=== PATIENT | male | born 1980 | race Caucasian/White ===

== ENCOUNTER 2022-11-15 12:28 | Outpatient (OUT) | payer MEDICARE, MEDICAID, SELFPAY ==
[2022-11-15 13:03] LABS: Basophils Percent Auto 0.5 % (0.2-2.0); Eosinophils Absolute Auto 0.1 10^3/uL (0.0-0.7); Eosinophils Percent Auto 1.7 % (0.9-7.0); Hematocrit 47.8 % (42.0-54.0); Hemoglobin 15.9 g/dL (14.0-18.0); Immature Granulocytes Abs Auto 0.02 10^3/uL (0.00-0.03); Immature Granulocytes Pct Auto 0.3 % (0.0-0.5); Lymphocytes Absolute Auto 1.9 10^3/uL (1.2-3.8); Mean Corpuscular HGB Conc 33.3 g/dL (29.9-35.2); Mean Corpuscular Hemoglobin 27.8 pg (25.9-34.0); Mean Corpuscular Volume 83.6 fL (80.0-94.0); Mean Platelet Volume 8.6 fL (9.5-13.5); Monocytes Absolute Auto 0.5 10^3/uL (0.3-0.8); Monocytes Percent Auto 8.3 % (1.7-12.0); Neutrophils Absolute Auto 3.8 10^3/uL (1.4-6.5); Neutrophils Percent Auto 59.2 % (43.0-75.0); Platelet Count 198 10^3/uL (150-450); Red Blood Count 5.72 10^6/uL (4.70-6.10); Red Cell Distribution Width 13.5 % (11.0-15.0); White Blood Count 6.5 10^3/uL (4.0-11.0)
[2022-11-15 13:44] LABS: Alanine Aminotransferase 20 U/L (16-63); Albumin Globulin Ratio 1.1; Albumin Level 3.8 g/dL (3.4-5.0); Alkaline Phosphatase 67 U/L (46-116); Anion Gap 14.1; Aspartate Amino Transferase 16 U/L (15-37); BUN Creatinine Ratio 10.2; Bilirubin Total 0.8 mg/dL (0.2-1.0); Carbon Dioxide 26.6 mmol/L (21.0-32.0); Chloride 104 mmol/L (98-107); Estimated GFR (African America >60 (>=60); Estimated GFR (Non-African Ame >60 (>=60); Globulin 3.4 g/dL; Glucose 95 mg/dL (74-106); Potassium 3.7 mmol/L (3.5-5.1); Sodium 141 mmol/L (136-145); Total Protein 7.2 g/dL (6.4-8.2)
== END 2022-11-15 12:29 | disposition home or self-care (01) ==
LOC: LAB 12:42
PROVIDERS: PCP Nurse Practitioner; Visit Provider Nurse Practitioner
DX: J43.9 Emphysema, unspecified (principal); E55.9 Vitamin D deficiency, unspecified
CPT/HCPCS: 36415; 80053; 82306; 85025

== ENCOUNTER 2023-11-13 14:58 | Outpatient (OUT) | payer MEDICARE, MEDICAID, SELFPAY ==
[2023-11-13 15:56] LABS: Basophils Percent Auto 0.4 % (0.2-2.0); Eosinophils Absolute Auto 0.1 10^3/uL (0.0-0.7); Eosinophils Percent Auto 0.7 % (0.9-7.0); Hematocrit 49.5 % (42.0-54.0); Hemoglobin 16.6 g/dL (14.0-18.0); Immature Granulocytes Abs Auto 0.05 10^3/uL (0.00-0.03); Immature Granulocytes Pct Auto 0.6 % (0.0-0.5); Lymphocytes Percent Auto 24.9 % (20.5-60.0); Mean Corpuscular HGB Conc 33.5 g/dL (29.9-35.2); Mean Corpuscular Volume 83.6 fL (80.0-94.0); Mean Platelet Volume 9.4 fL (9.5-13.5); Monocytes Absolute Auto 0.7 10^3/uL (0.3-0.8); Monocytes Percent Auto 8.3 % (1.7-12.0); Neutrophils Absolute Auto 5.3 10^3/uL (1.4-6.5); Neutrophils Percent Auto 65.1 % (43.0-75.0); Platelet Count 165 10^3/uL (150-450); Red Blood Count 5.92 10^6/uL (4.70-6.10); Red Cell Distribution Width 13.2 % (11.0-15.0); White Blood Count 8.2 10^3/uL (4.0-11.0)
[2023-11-13 15:57] LABS: Bilirubin Urine NEGATIVE (NEGATIVE); Blood Urine NEGATIVE (NEGATIVE); Clarity Urine CLEAR (CLEAR); Color Urine LT. YELLOW (YELLOW); Glucose Urine UA NEGATIVE (NEGATIVE); Ketones Urine NEGATIVE (NEGATIVE); Leukocyte Esterase Urine NEGATIVE (NEGATIVE); Nitrite Urine NEGATIVE (NEGATIVE); Protein Urine NEGATIVE (NEG/TRACE); Urobilinogen Urine 0.2 EU/dL (0.2-1.0)
[2023-11-13 16:10] LABS: Urine Microscopic Indicated NO
[2023-11-13 16:42] LABS: Alanine Aminotransferase 19 U/L (16-63); Albumin Globulin Ratio 1.2; Albumin Level 4.2 g/dL (3.4-5.0); Alkaline Phosphatase 77 U/L (46-116); Anion Gap 15.6; Aspartate Amino Transferase 13 U/L (15-37); BUN Creatinine Ratio 9.8; Bilirubin Total 0.8 mg/dL (0.2-1.0); Carbon Dioxide 24.1 mmol/L (21.0-32.0); Chloride 105 mmol/L (98-107); Cholesterol 163 mg/dL (<=200); Estimated GFR (African America >60 (>=60); Estimated GFR (Non-African Ame >60 (>=60); Globulin 3.4 g/dL; Glucose 97 mg/dL (74-106); HDL Cholesterol 41 mg/dL (40-60); LDL Cholesterol Calculated 100.4 mg/dL; Potassium 3.7 mmol/L (3.5-5.1); Sodium 141 mmol/L (136-145); Total Protein 7.6 g/dL (6.4-8.2); Triglycerides 108 mg/dL (<=150); VLDL CHOLESTEROL 21.6 mg/dL
== END 2023-11-13 14:59 | disposition home or self-care (01) ==
PROVIDERS: PCP Nurse Practitioner; Visit Provider Nurse Practitioner
DX: E55.9 Vitamin D deficiency, unspecified (principal); F17.200 Nicotine dependence, unspecified, uncomplicated; J43.9 Emphysema, unspecified; Z83.438 Family history of other disorder of lipoprotein metabolism and other lipidemia
CPT/HCPCS: 36415; 80053; 80061; 81003; 82306; 85025

== ENCOUNTER 2024-02-01 13:30 | Outpatient (OUT) | payer MEDICARE, MEDICAID, SELFPAY ==
--- OUTSIDE RECORDS SUMMARY | 2024-02-01 13:46 | XMS_ITS | CCD ---
Author Organization [facility] Care Team Providers Care Team [employer] Driver Name Role Phone Keyla, Kishor J Unavailable Unavailable Cromley, Kishor J Unavailable Unavailable Cromley, Kishor J Unavailable Unavailable Cromley, Kishor J Unavailable Unavailable Cromley, Kishor J Unavailable Unavailable Cromley, Kishor J Unavailable Unavailable AICHHOLZ, RIDE OPERATOR IKER Primary Care Unavailable AICHHOLZ, RIDE OPERATOR IKER Consulting Unavailable AICHHOLZ, RIDE OPERATOR IKER Admitting Unavailable AICHHOLZ, RIDE OPERATOR IKER Attending Unavailable AICHHOLZ, RIDE OPERATOR IKER Primary Care Unavailable DR ASHLEY CANTU V Consulting Unavailable AICHHOLZ, RIDE OPERATOR IKER Admitting Unavailable AICHHOLZ, RIDE OPERATOR IKER Attending Unavailable AICHHOLZ, RIDE OPERATOR IKER Consulting Unavailable AICHHOLZ, RIDE OPERATOR IKER Primary Care Unavailable AICHHOLZ, RIDE OPERATOR IKER Admitting Unavailable AICHHOLZ, RIDE OPERATOR IKER Attending Unavailable AICHHOLZ, RIDE OPERATOR IKER Consulting Unavailable AICHHOLZ, RIDE OPERATOR IKER Primary Care Unavailable AICHHOLZ, RIDE OPERATOR IKER Attending Unavailable AICHHOLZ, RIDE OPERATOR IKER Admitting Unavailable AICHHOLZ, RIDE OPERATOR IKER Consulting Unavailable AICHHOLZ, RIDE OPERATOR IKER Admitting Unavailable AICHHOLZ, RIDE OPERATOR IKER Primary Care Unavailable AICHHOLZ, RIDE OPERATOR IKER Attending Unavailable AICHHOLZ, RIDE OPERATOR IKER Consulting Unavailable AICHHOLZ, RIDE OPERATOR IKER Consulting Unavailable AICHHOLZ, RIDE OPERATOR IKER Admitting Unavailable AICHHOLZ, RIDE OPERATOR IKER Attending Unavailable AICHHOLZ, RIDE OPERATOR IKER Primary Care Unavailable AICHHOLZ, RIDE OPERATOR IKER Primary Care Unavailable AICHHOLZ, RIDE OPERATOR IKER Consulting Unavailable AICHHOLZ, RIDE OPERATOR IKER Admitting Unavailable AICHHOLZ, RIDE OPERATOR IKER Attending Unavailable AICHHOLZ, IKER Attending Unavailable AICHHOLZ, IKER Attending Unavailable Allergies Allergy Classification Reported Allergen(s) Allergy Type Date of Onset Reaction(s) Facility (1 source) Amoxicillin Drug Allergy 08-29-[address] [facility] (1 source) Penicillins Drug allergy (disorder) 08-29-[address] [facility] Problems Problem Classification Problem Date Documented Da te Episodic/Chronic Asthma (4 sources) Mild intermittent asthma, uncomplicated; Translations: [MILD INTERMIT ASTHMA UNCOMPLICATED] Onset: 10-25-2021 Chronic Malaise and fatigue (1 source) Other fatigue; Translations: [OTHER FATIGUE] Onset: 09-16-2021 Episodic Nutritional deficiencies (4 sources) Vitamin D deficiency, unspecified; Translations: [VITAMIN D DEFICIENCY UNSPECIFIED] Onset: 12-04-2021 Chronic Other infections; including parasitic (4 sources) Trichomoniasis, unspecified; Translations: [TRICHOMONIASIS UNSPECIFIED] Onset: 10-21-2021 Episodic Other nutritional; endocrine; and metabolic disorders (1 source) Hypocalcemia; Translations: [HYPOCALCEMIA] Onset: 10-01-2021 Chronic Other screening for suspected conditions (not mental disorders or infectious disease) (2 sources) Other specified abnormal findings of blood chemistry; Translations: [Encounter for screening for lipoid disorders] Onset: 09-16-2021 Episodic Residual codes; unclassified (1 source) Family history of other disorder of lipoprotein metabolism and other lipidemia; Translations: [FAM HX D/O LIPOPR METAB OTH LIPID] Onset: 09-16-2021 Episodic Residual codes; unclassified (1 source) Tobacco use; Translations: [TOBACCO USE] Onset: 09-16-2021 Episodic Residual codes; unclassified (1 source) Family history of other endocrine, nutritional and metabolic diseases; Translations: [FAM HX OTH ENDOCRN NUTRIT METAB DZ] Onset: 09-16-2021 Episodic Skin and subcutaneous tissue infections (4 sources) Cutaneous abscess of face; Translations: [CUTANEOUS ABSCESS OF FACE] Onset: 09-03-2021 Episodic Results Test Name Value Interpretation Reference Range Facility VITAMIN D 25 OHon 12-04-2021 VIT D 25-OH 42.6 ng/mL Normal [facility] Comment on above: Performed By: #### C NING #### [facility] [address] [place] [address] Dr. Theodora Alicea VIT D RANGES SEE BELOW Normal [facility] Comment on above: Result Comment: <20 ng/mL Vit D deficient 20 - <30 ng/mL Vit D insufficient 30 - 100 ng/mL Vit D sufficient >100 ng/mL Potential Toxicity Performed By: #### C TVNGNA #### [facility] [address] [address] [address] Theodora Alicea XR CHEST 2 Von 10-25-2021 XR CHEST 2 V EXAMINATION: XR CHES T 2 V HISTORY: Mild intermittent asthma COMPARISON: No relevant comparison available. TECHNIQUE: PA and lateral FINDINGS: LUNGS: Biapical opacities, chronic scarring is favored. No focal parenchymal infiltrates VASCULATURE: No increased pulmonary vasculature. PLEURA: No pneumothorax, effusion, or pleural thickening. CARDIAC: No cardiomegaly or cardiac silhouette abnormality. MEDIASTINUM: No visible mass or adenopathy. BONES: No fracture or visible bone lesion. OTHER: Negative. IMPRESSION: No acute disease. Electronically authenticated by: ASHLEY CANTU Date: 2021-10-25 08:[address] [facility] TRICHAMONAS VAGINALIS. NAAon 10-22-2021 Trich vag by MARICHUY Negative Normal Negative [facility] Comment on above: Performed By: #### C TVNGNA #### [facility] [address] [address] [address] Theodora Alicea TRICHAMONAS VAGINALIS. NAAon 09-30-2021 Trich vag by MARICHUY Positive Abnormal Negative [facility] Comment on above: Performed By: #### T RICHNA #### [facility] [address] [address] [address] Theodora Alicea CALCIUMon 09-28-2021 Calcium [Mass/Vol] 8.5 mg/dL Normal 8.5-10.1 [facility] Comment on above: Performed By: #### C TVNGNA #### [facility] [address] [address] [address] Theodora Alicea CBC AUTO DIFFon 09-28-2021 BASO # 0.1 103/ul Normal 0.0-0.1 [facility] Comment on above: Performed By: #### C TVNGNA #### [facility] [address] [address] [address] Theodora Alicea Basophils/100 WBC (Bld) 0.6 % Normal 0.2-2.0 [facility] Comment on above: Performed By: #### C TVNGNA #### [facility] [address] [place] [address] Dr. Theodora Alicea EO # 0.1 103/ul Normal 0.0-0.7 [facility] Comment on above: Performed By: #### C TVNGNA #### [facility] [address] [place] [address] Dr. Theodora Alicea Eosinophils/100 WBC (Bld) 1.4 % Normal 0.9-7.0 [facility] Comment on above: Performed By: #### C TVNGNA #### [facility] [address] [place] [address] Dr. Theodora Alicea Erythrocyte distribution width (RBC) [Ratio] 13.5 % Normal 11.0-15.0 [facility] Comment on above: Performed By: #### C TVNGNA #### [facility] [address] [place] [address] Dr. Theodora Alicea Hematocrit (Bld) [Volume fraction] 48.5 % Normal 42.0-54.0 [facility] Comment on above: Performed By: #### C TVNGNA #### [facility] [address] [place] [address] Dr. Theodora Alicea Hemoglobin (Bld) [Mass/Vol] 16.1 g/dL Normal 14.0-18.0 [facility] Comment on above: Performed By: #### C TVNGNA #### [facility] [address] [place] [address] Dr. Theodora Alicea IG # 0.05 10e3/ul Critically high 0.00-0.03 [facility] Comment on above: Performed By: #### C TVNGNA #### [facility] [address] [place] [address] Dr. Theodora Alicea IG % 0.6 % Critically high 0.0-0.[address] [facility] Comment on above: Performed By: #### C TVNGNA #### [facility] [address] [place], [place] [id number] Dr. Theodora Alicea LYMPH # 2.2 103/ul Normal 1.2-3.[address] [facility] Comment on above: Performed By: #### C TVNGNA #### [facility] [address] [place] [address] Dr. Theodora Alicea Lymphocytes/100 WBC (Bld) 25.4 % Normal 20.5-60.0 [facility] Comment on above: Performed By: #### C TVNGNA #### [facility] [address] [place] [address] Dr. Theodora Alicea MANUAL DIFF REQ NO Normal [facility] Comment on above: Performed By: #### C TVNGNA #### [facility] [address] [place] [address] Dr. Theodora Alicea MCH (RBC) [Entitic mass] 29.0 pg Normal 25.9-34.0 [facility] Comment on above: Performed By: #### C TVNGNA #### [facility] [address] [place] [address] Dr. Theodora Alicea MCHC (RBC) [Mass/Vol] 33.2 g/dL Normal 29.9-35.[address] [facility] Comment on above: Performed By: #### C TVNGNA #### [facility] [address] [place] [address] Dr. Theodora Alicea MCV (RBC) [Entitic vol] 87.2 fL Normal 80.0-94.[address] [facility] Comment on above: Performed By: #### C TVNGNA #### [facility] [address] [place] [address] Dr. Theodora Alicea MONO # 0.7 103/ul Normal 0.3-0.[address] [facility] Comment on above: Performed By: #### C TVNGNA #### [facility] [address] [place] [address] Dr. Theodora Alicea Monocytes/100 WBC (Bld) 8.2 % Normal 1.7-12.0 [facility] Comment on above: Performed By: #### C TVNGNA #### [facility] [address] [address] [address] Theodora Alicea NEUT # 5.5 103/ul Normal 1.4-6.[address] [facility] Comment on above: Performed By: #### C TVNGNA #### [facility] [address] [address] [address] Theodora Alicea Neutrophils/100 WBC (Bld) 63.8 % Normal 43.0-75.[address] [facility] Comment on above: Performed By: #### C TVNGNA #### [facility] [address] [address] [address] Theodora Alicea Platelet mean volume (Bld) [Entitic vol] 8.6 fL Critically low 9.5-13.[address] [facility] Comment on above: Performed By: #### C TVNGNA #### [facility] [address] [place] [address] Dr. Theodora Alicea PLT 153 103/ul Normal 150-[address] [facility] Comment on above: Performed By: #### C TVNGNA #### [facility] [address] [place] [address] Dr. Theodora Alicea RBC 5.56 106/ul Normal 4.70-6.[address] [facility] Comment on above: Performed By: #### C TVNGNA #### [facility] [address] [place] [address] Dr. Theodora Alicea WBC 8.6 103/ul Normal 4.0-11.[address] [facility] Comment on above: Performed By: #### C TVNGNA #### [facility] [address] [place] [address] Dr. Theodora Alicea VITAMIN D 25 OHon 09-28-2021 VIT D 25-OH 10.9 ng/mL Normal [facility] Comment on above: Performed By: #### V ITAD #### [facility] [address] [place] [address] Dr. Theodora Alicea VIT D RANGES SEE BELOW Normal [facility] Comment on above: Result Comment: <20 ng/mL Vit D deficient 20 - <30 ng/mL Vit D insufficient 30 - 100 ng/mL Vit D sufficient >100 ng/mL Potential Toxicity Performed By: #### V ITAD #### [facility] [address] [place] [address] Dr. Theodora Alicea WOUND CULTUREon 09-20-2021 Aerobic Culture Final report Normal [facility] Comment on above: Performed By: #### C XWND #### [facility] [address] [place] [address] Dr. Theodora Alicea Anaerobic Culture Final report Abnormal [facility] Comment on above: Performed By: #### C XWND #### [facility] [address] [place] [address] Dr. Theodora Alicea Result 1 Mixed skin martin Normal [facility] Comment on above: Performed By: #### C XWND #### [facility] [address] [place] [address] Dr. Theodora Alicea Result [address] [facility] Comment on above: Result Comment: Mixe d anaerobic organisms, none predominating. Performed By: #### C XWND #### [facility] [address] [place] [address] Dr. Theodora Alicea CHLAMYDIA , NISSERIA, VAGINA LIS NAAon 09-10-2021 Chlamydia by MARICHUY Negative Normal Negative [facility] Comment on above: Performed By: #### C TVNGNA #### [facility] [address] [place] [address] Dr. Theodora Alicea Gonococcus by MARICHUY Negative Normal Negative [facility] Comment on above: Performed By: #### C TVNGNA #### [facility] [address] [place] [address] Dr. Theodora Alicea Trich vag by MARICHUY Positive Abnormal Negative [facility] Comment on above: Performed By: #### C TVNGNA #### [facility] [address] [place] [address] Dr. Theodora Alicea CBC AUTO DIFFon 09-03-2021 BASO # 0.0 103/ul Normal 0.0-0.1 [facility] Comment on above: Performed By: #### C BC #### [facility] [address] [place] [address] Dr. Theodora Alicea Basophils/100 WBC (Bld) 0.5 % Normal 0.2-2.0 [facility] Comment on above: Performed By: #### C BC #### [facility] [address] [place] [address] Dr. Theodora Alicea EO # 0.1 103/ul Normal 0.0-0.7 [facility] Comment on above: Performed By: #### C BC #### [facility] [address] [place] [address] Dr. Theodora Alicea Eosinophils/100 WBC (Bld) 1.4 % Normal 0.9-7.0 [facility] Comment on above: Performed By: #### C BC #### [facility] [address] [place] [address] Dr. Theodora Alicea Erythrocyte distribution width (RBC) [Ratio] 13.7 % Normal 11.0-15.0 [facility] Comment on above: Performed By: #### C BC #### [facility] [address] [place] [address] Dr. Theodora Alicea Hematocrit (Bld) [Volume fraction] 48.3 % Normal 42.0-54.0 [facility] Comment on above: Performed By: #### C BC #### [facility] [address] [place] [address] Dr. Theodora Alicea Hemoglobin (Bld) [Mass/Vol] 16.6 g/dL Normal 14.0-18.0 [facility] Comment on above: Performed By: #### C BC #### [facility] [address] [place] [address] Dr. Theodora Alicea IG # 0.02 10e3/ul Normal 0.00-0.[address] [facility] Comment on above: Performed By: #### C BC #### [facility] [address] [place] [address] Dr. Theodora Alicea IG % 0.3 % Normal 0.0-0.[address] [facility] Comment on above: Performed By: #### C BC #### [facility] [address] [place] [address] Dr. Theodora Alicea LYMPH # 1.3 103/ul Normal 1.2-3.8 [facility] Comment on above: Performed By: #### C BC #### [facility] [address] [place] [address] Dr. Theodora Alicea Lymphocytes/100 WBC (Bld) 20.0 % Critically low 20.5-60.0 [facility] Comment on above: Performed By: #### C BC #### [facility] [address] [place] [address] Dr. Theodora Alicea MANUAL DIFF REQ NO Normal [facility] Comment on above: Performed By: #### C BC #### [facility] [address] [place] [address] Dr. Theodora Alicea MCH (RBC) [Entitic mass] 29.1 pg Normal 25.9-34.0 [facility] Comment on above: Performed By: #### C BC #### [facility] [address] [place] [address] Dr. Theodora Alicea MCHC (RBC) [Mass/Vol] 34.4 g/dL Normal 29.9-35.2 [facility] Comment on above: Performed By: #### C BC #### [facility] [address] [place] [address] Dr. Theodora Alicea MCV (RBC) [Entitic vol] 84.6 fL Normal 80.0-94.0 [facility] Comment on above: Performed By: #### C BC #### [facility] [address] [place] [address] Dr. Theodora Alicea MONO # 0.7 103/ul Normal 0.3-0.8 [facility] Comment on above: Performed By: #### C BC #### [facility] [address] [place] [address] Dr. Theodora Alicea Monocytes/100 WBC (Bld) 11.1 % Normal 1.7-12.0 [facility] Comment on above: Performed By: #### C BC #### [facility] [address] [place] [address] Dr. Theodora Alicea NEUT # 4.2 103/ul Normal 1.4-6.5 [facility] Comment on above: Performed By: #### C BC #### [facility] [address] [address] [address] Theodora Alicea Neutrophils/100 WBC (Bld) 66.7 % Normal 43.0-75.0 [facility] Comment on above: Performed By: #### C BC #### [facility] [address] [address] [address] Theodora Alicea Platelet mean volume (Bld) [Entitic vol] 8.6 fL Critically low 9.5-13.5 [facility] Comment on above: Performed By: #### C BC #### [facility] [address] [place] [address] Dr. Theodora Alicea PLT 151 103/ul Normal 150-[address] [facility] Comment on above: Performed By: #### C BC #### [facility] [address] [place] [address] Dr. Theodora Alicea RBC 5.71 106/ul Normal 4.70-6.[address] [facility] Comment on above: Performed By: #### C BC #### [facility] [address] [place] [address] Dr. Theodora Alicea WBC 6.3 103/ul Normal 4.0-11.0 [facility] Comment on above: Performed By: #### C BC #### [facility] [address] [place] [address] Dr. Theodora Alicea LIPID PROFILEon 09-03-2021 CHOL-HDL RATIO NORM SEE BELOW Normal [facility] Comment on above: Result Comment: 3.3 - 4.4 LOW RISK 4.4 - 7.1 AVERAGE RISK 7.1 - 11.0 MODERATE RISK >11.0 HIGH RISK Performed By: #### L IPID, CMP, TSH #### [facility] [address] [place] [address] Dr. Theodora Alicea Cholesterol [Mass/Vol] 162 mg/dL Normal <=[address] [facility] Comment on above: Performed By: #### L IPID, CMP, TSH #### [facility] [address] [place], [place] [id number] Dr. Theodora Alicea Cholesterol in HDL [Mass/Vol] 45 mg/dL Normal 40-60 [facility] Comment on above: Performed By: #### L IPID, CMP, TSH #### [facility] [address] [place] [address] Dr. Theodroa Alicea Cholesterol in LDL [Mass/Vol] 107.4 mg/dL Normal [facility] Comment on above: Performed By: #### L IPID, CMP, TSH #### [facility] [address] [place] [address] Dr. Theodora Alicea Cholesterol.total/ Cholesterol in HDL [Mass ratio] 3.6 {ratio} Normal [facility] Comment on above: Performed By: #### L IPID, CMP, TSH #### [facility] [address] [place] [address] Dr. Theodora Alicea HDL NORMAL > or = 60 mg/dl - LO W CARDIOVASCULAR RISK <40 mg/dl - HIGH CARDIOVASCULAR RISK Normal [facility] Comment on above: Performed By: #### L IPID, CMP, TSH #### [facility] [address] [place] [address] Dr. Theodora Alicea LDL CALC NORMAL SEE BELOW Normal [facility] Comment on above: Result Comment: <100 mg/dl OPTIMAL 100 - 129 mg/dl NEAR OR ABOVE OPTIMAL 130 - 159 mg/dl BORDERLINE HIGH 160 - 189 mg/dl HIGH >190 mg/dl VERY HIGH Performed By: #### L IPID, CMP, TSH #### [facility] [address] [place] [address] Dr. Theodora Alicea Triglyceride [Mass/Vol] 48 mg/dL Normal <=[address] [facility] Comment on above: Performed By: #### L IPID, CMP, TSH #### [facility] [address] [place] [address] Dr. Theodora Alicea VLDL CALC 9.6 mg/dL Normal [facility] Comment on above: Performed By: #### L IPID, CMP, TSH #### [facility] [address] [place] [address] Dr. Theodora Alicea PROF 14(COMP METB)on 022 Albumin [Mass/Vol] 4.0 g/dL Normal 3.4-5.0 [facility] Comment on above: Performed By: #### L IPID, CMP, TSH #### [facility] [address] [address] [address] Theodora Alicea Albumin/Globulin [Mass ratio] 1.3 {ratio} Normal [facility] Comment on above: Performed By: #### L IPID, CMP, TSH #### [facility] [address] [address] [address] Theodora Alicea ALP [Catalytic activity/Vol] 66 U/L Normal 46-116 [facility] Comment on above: Performed By: #### L IPID, CMP, TSH #### [facility] [address] [place] [address] Dr. Theodora Alicea ALT [Catalytic activity/Vol] 25 U/L Normal 16-63 [facility] Comment on above: Performed By: #### L IPID, CMP, TSH #### [facility] [address] [address] [address] Theodora Alicea Anion gap [Moles/Vol] 10.7 mmol/L Normal [facility] Comment on above: Performed By: #### L IPID, CMP, TSH #### [facility] [address] [place] [address] Dr. Theodora Alicea AST [Catalytic activity/Vol] 13 U/L Critically low 15-37 [facility] Comment on above: Performed By: #### L IPID, CMP, TSH #### [facility] [address] [address] [address] Theodora Alicea Bilirubin [Mass/Vol] 0.4 mg/dL Normal 0.2-1.3 [facility] Comment on above: Performed By: #### L IPID, CMP, TSH #### [facility] [address] [address] [address] Theodora Alicea Calcium [Mass/Vol] 8.3 mg/dL Critically low 8.5-10.1 Th [facility] Comment on above: Performed By: #### L IPID, CMP, TSH #### [facility] [address] [address] [address] Theodora Alicea Chloride [Moles/Vol] 104 mmol/L Normal 98-[address] [facility] Comment on above: Performed By: #### L IPID, CMP, TSH #### [facility] [address] [address] [address] Theodora Alicea CO2 [Moles/Vol] 24.9 mmol/L Normal 22.0-30.0 [facility] Comment on above: Performed By: #### L IPID, CMP, TSH #### [facility] [address] [address] [address] Tehodora Alicea Creatinine [Mass/Vol] 1.08 mg/dL Normal 0.66-1.25 [facility] Comment on above: Performed By: #### L IPID, CMP, TSH #### [facility] [address] [address] [address] Theodora Alicea EGFR-AF NIGERIEN >60 Normal >=60 [facility] Comment on above: Performed By: #### L IPID, CMP, TSH #### [facility] [address] [address] [address] Theodora Alicea EGFR-NON AF NIGERIEN >60 Normal >=60 [facility] Comment on above: Performed By: #### L IPID, CMP, TSH #### [facility] [address] [address] [address] Theodora Alicea Globulin (S) [Mass/Vol] 3.0 g/dL Normal [facility] Comment on above: Performed By: #### L IPID, CMP, TSH #### [facility] [address] [address] [address] Theodora Alicea Glucose [Mass/Vol] 96 mg/dL Normal 74-106 [facility] Comment on above: Performed By: #### L IPID, CMP, TSH #### [facility] [address] [address] [address] Theodora Alicea Potassium [Moles/Vol] 3.6 mmol/L Normal 3.4-5.0 [facility] Comment on above: Performed By: #### L IPID, CMP, TSH #### [facility] [address] [place] [address] Dr. Theodora Alicea Protein [Mass/Vol] 7.0 g/dL Normal 6.1-8.2 [facility] Comment on above: Performed By: #### L IPID, CMP, TSH #### [facility] [address] [place] [address] Dr. Theodora Alicea Sodium [Moles/Vol] 136 mmol/L Critically low 137-145 Th [facility] Comment on above: Performed By: #### L IPID, CMP, TSH #### [facility] [address] [place] [address] Dr. Theodora Alicea Urea nitrogen [Mass/Vol] 11.0 mg/dL Normal 7.0-18.0 [facility] Comment on above: Performed By: #### L IPID, CMP, TSH #### [facility] [address] [place] [address] Dr. Theodora Alicea Urea nitrogen/Creatinin e [Mass ratio] 10.2 mg/mg Normal [facility] Comment on above: Performed By: #### L IPID, CMP, TSH #### [facility] [address] [place] [address] Dr. Theodora Alicea TSHon 09-03-2021 TSH 1.525 uIU/mL Normal 0.470-4.680 [facility] Comment on above: Performed By: #### L IPID, CMP, TSH #### [facility] [address] [place] [address] Dr. Theodora Alicea TSH RANGE SEE BELOW Normal [facility] Comment on above: Result Comment: <0.3 4 UIU/ml HYPERTHYROID 0.34-5.60 UIU/ml EUTHYROID >5.60 UIU/ml HYPOTHYROID Performed By: #### L IPID, CMP, TSH #### [facility] [address] [place] [address] Dr. Theodora Alicea UA RANDOM W/MICROSCOPICon BACTERIA TRACE Abnormal NONE SEEN [facility] Comment on above: Performed By: #### U AMIC #### [facility] [address] [address] [address] Theodora Alicea Bilirubin Ql (U) Negative Normal NEGATIVE The [facility] Comment on above: Performed By: #### U AMIC #### [facility] [address] [address] [address] Theodora Alicea CAST NONE SEEN Normal NONE SEEN [facility] Comment on above: Performed By: #### U AMIC #### [facility] [address] [address] [address] Theodora Alicea Clarity (U) CLEAR Normal CLEAR [facility] Comment on above: Performed By: #### U AMIC #### [facility] [address] [address] [address] Theodora Alicea Color (U) LT. YELLOW Normal YELLOW [facility] Comment on above: Performed By: #### U AMIC #### [facility] [address] [address] [address] Theodora Alicea Crystals LM Nom (Urine sed) NONE SEEN Normal NONE SEEN [facility] Comment on above: Performed By: #### U AMIC #### [facility] [address] [address] [address] Theodora Alicea Epithelial cells LM Ql (Urine sed) RARE Normal NONE SEEN /RARE [facility] Comment on above: Performed By: #### U AMIC #### [facility] [address] [address] [address] Theodora Alicea Glucose Ql (U) Negative Normal NEGATIVE The [facility] Comment on above: Performed By: #### U AMIC #### [facility] [address] [address] [address] Theodora Alicea Hemoglobin Ql (U) Negative Normal NEGATIVE The [facility] Comment on above: Performed By: #### U AMIC #### [facility] [address] [address] [address] Theodora Alicea Ketones Ql (U) Negative Normal NEGATIVE [facility] Comment on above: Performed By: #### U AMIC #### [facility] [address] [address] [address] Theodora Alicea LEUKOCYTES MODERATE Abnormal NEGATIVE [facility] Comment on above: Performed By: #### U AMIC #### [facility] [address] [address] [address] Theodora Alicea MUCOUS NONE SEEN Normal NONE SEEN [facility] Comment on above: Performed By: #### U AMIC #### [facility] [address] [address] [address] Theodora Alicea Nitrite Ql (U) Negative Normal NEGATIVE [facility] Comment on above: Performed By: #### U AMIC #### [facility] [address] [place] [address] Dr. Theodora Alicea pH (U) 6.0 [pH] Normal 5-9 [facility] Comment on above: Performed By: #### U AMIC #### [facility] [address] [place] [address] Dr. Theodora Alicea RBC 0-2 Normal 0-2 [facility] Comment on above: Performed By: #### U AMIC #### [facility] [address] [place] [address] Dr. Theodora Alicea SPEC GRAVITY <=1.005 Abnormal 1.005-<=1.025 [facility] Comment on above: Performed By: #### U AMIC #### [facility] [address] [place] [address] Dr. Theodora Alicea TRICH SEEN Abnormal NONE SEEN [facility] Comment on above: Performed By: #### U AMIC #### [facility] [address] [place] [address] Dr. Theodora Alicea UA PROTEIN Negative Normal NEGATIVE/ TRACE [facility] Comment on above: Performed By: #### U AMIC #### [facility] [address] [place] [address] Dr. Theodora Alicea Urobilinogen Qn (U) 0.2 {Gene'U}/dL Normal 0.2 - 1.0 [facility] Comment on above: Performed By: #### U AMIC #### [facility] [address] [place] [address] Dr. Theodora Alicea WBC 5-10 Abnormal NONE SEEN [facility] Comment on above: Performed By: #### U AMI #### [facility] [address] [address] [address] Theodora Alicea Ambulatory Patient Summaryon 11-17-2016 Ambulatory Patient Summary Kishor Ramires DO [facility] [place], [place] [address]Phone: Ailsm Summary For KASSIDY Lamb would like to thank you for allowing us to assist you with your healthcare needs. Our entire staff strives to provide an excellent experience for our patients and their families. The following includes information regarding your visit. Age: 36 years Sex: MALE : 1980 Address: [address] [place] [address] Home: Work: -- Mobile: -- Primary Care Provider: Kishor Ramires DO Race: White Ethnicity: Not or Language: Urdu Health Plan: , 2?MEDICAID [place]Reason for Visit: Referral and Consult Requests this Visit No Referral or Consults documentedFuture Appointments No Future Appointments Scheduled Future Orders No future ordersAdditional Goals and Instructions:Follow-Up InformationWith: Address: When:Kishor Ramires [address] [place] [address] Business (1)Comments:increase meloxicam to 15mg dailyd/c amitriptylinebegin duloxetine 30mg daily for 7 daysthen increase to 30mg twice daily there afterPerform the abdominal exercises per our discussion; 5 seconds at a time for ten repetitionsf/u 1 monthAllergies No Allergies Documented Vitals and Measurements this Visit (last charted value for your 11/17/2016 visit) Vital Signs This Visit Temperature Oral: 36.9 DegC Peripheral Pulse Rate: 68 bpm Pulse Site: Pulse Oximetry Respiratory Rate: 14 br/min Systolic Blood Pressure: 110 mmHg Diastolic Blood Pressure: 68 mmHg BP Site: Left arm Measurements This Visit Height: 180.3 cm Weight: 75.1 kg Body Mass Index: 23.1 kg/m2 BSA Measured: 2 d0Fcpqulj Status Current Every Day SmokerProcedures No Procedures Documented Problems and Health Issues Disorder of hip Hyperreactive airway disease Lumbar radiculopathy Lumbar somatic dysfunction Mood disorder of depressed type Pelvic somatic dysfunction Schizophrenia Somatic dysfunction Spasm Tobacco use disorder, continuousDiagnoses This Visit Chronic radicular low back pain (M54.16) Depression (emotion) (F32.9) Somatic dysfunction of lumbar region (M99.03) Somatic dysfunction of pelvic region (M99.05) Spasm of lumbar paraspinous muscle (M62.830) Tobacco use disorder (F17.200)Laboratory or Other Results This Visit (last charted value for your 11/17/2016 visit) No Laboratory or Other Results This Visit Medications and Immunizations Administered During This Visit No medication administered during this visit All Known Current Prescriptions and Reported Medications New Prescriptions this Visit DULoxetine 30 mg oral delayed release capsule (DULoxetine) Take 1 cap(30 Milligram) Oral 2 times a day, 5 refills authorized Instructions: (do not crush or chew) meloxicam 15 mg oral tablet (meloxicam) Take 1 tab(s)(15 Milligram) Oral every day, 0 refills authorized Prescriptions No previous prescriptions documented Home Medications No reported medications documentedNew MedicationsHar[facility] [address] [place] [address], [phone] (DULoxetine 30 mg oral delayed release capsule) 1 cap Oral 2 times a day. (do not crush or chew). Refills: 5.Medications That Were Updated - Follow Below InstructionsHarlem [facility] [address] [place] [address], [phone]: meloxicam (meloxicam 15 mg oral tablet) 1 tab(s) Oral every day. Refills: 0.No Longer Take the Following Medicationsamitriptyline (amitriptyline 25 mg oral tablet) 1 tab(s) Oral once a day (at bedtime). Refills: 5.Muscle Cramps and SpasmsMuscle cramps and spasms are when muscles tighten by themselves. They usually get better within minutes. Muscle cramps are painful. They are usually stronger and last longer than muscle spasms. Muscle spasms may or may not be painful. They can last a few seconds or much longer. HOME CARE? Drink enough fluid to keep your pee (urine) clear or pale yellow.? Massage, stretch, and relax the muscle.? Use a warm towel, heating pad, or warm shower water on tight muscles.? Place ice on the muscle if it is tender or in pain.? Put ice in a plastic bag.? Place a towel between your skin and the bag.? Leave the ice on for 15-20 minutes, 03-04 times a day.? Only take medicine as told by your doctor.GET HELP RIGHT AWAY IF:Your cramps or spasms get worse, happen more often, or do not get better with time.MAKE SURE YOU:? Understand these instructions.? Will watch your condition.? Will get help right away if you are not doing well or get worse.This information is not intended to replace advice given to you by your health care provider. Make sure you discuss any questions you have with your health care provider.Document Released: 04/20/2009 Document Revised: 09/02/2013 Document Reviewed: 02/09/2016[employer] Interactive Patient Education ?2015 [employer] [facility] Encounters Encounter Date Encounter Type Care Provider Facility Start: 11-09-2023 End: 11-09-2023 ambulatory IKER AICHHOLZ Not Available Start: 05-09-2023 End: 05-09-2023 ambulatory IKER AICHHOLZ Not Available Start: 12-04-2021 End: 12-05-2021 ambulatory RIDE OPERATOR IKER AICHHOLZ Facility:[facility] Start: 10-25-2021 End: 10-26-2021 ambulatory RIDE OPERATOR IKER AICHHOLZ Facility:[facility] Start: 10-21-2021 End: 10-21-2021 ambulatory RIDE OPERATOR IKER AICHHOLZ Facility:[facility] Start: 09-28-2021 End: 09-29-2021 ambulatory RIDE OPERATOR IKER AICHHOLZ Facility:[facility] Start: 09-14-2021 End: 09-14-2021 ambulatory RIDE OPERATOR IKER AICHHOLZ Facility:[facility] Start: 09-08-2021 End: 09-09-2021 ambulatory RIDE OPERATOR IKER AICHHOLZ Facility:[facility] Start: 09-03-2021 End: 09-04-2021 ambulatory RIDE OPERATOR IKER AICHHOLZ Facility:[facility] Start: 11-17-2016 Ambulatory Kishor Ramires [facility] Start: 10-19-2016 End: 06-23-2017 Ambulatory Kishor Ramires [facility] Start: 09-20-2016 End: 11-29-2016 Ambulatory Kishor Ramires [facility] Payers Date Payer Category Payer Medicare [id number] 2016 Medicare [id number] 1980 Unknown [id number] 2.16.84 [id number] 1980 Unknown [id number] 2.16.84 [id number] 1980 Unknown [id number] 2.16.84 [id number] 1980 Unknown [id number] 2.16.84 [id number] 1980 Unknown [id number] 2.16.84 [id number] 1980 Unknown [id number] 2.16.84 [id number] 1980 Unknown [id number] 2.16.84 [id number] 1980 Unknown [id number] 2.16.84 [id number] 1958 Medicaid [id number] 1958 Medicare [id number] Summary Purpose Family History No Family History Records FoundNo Family History Records FoundNo Family History Records Found Advance Directives No Advanced Directives Records FoundNo Advanced Directives Records FoundNo Advanced Directives Records Found Additional Source Comments (unrecognized sect ion and content) No Status Records FoundNo Status Records FoundNo Status Records Found INFORMATION SOURCE (unrecogn ized section and content) DATE CREATED AUTHOR 11/13/2017 [facility] DATE CREATED AUTHOR AUTHOR'S ORGANIZ ATION [facility] DATE CREATED AUTHOR AUTHOR'S ORGANIZ ATION 11/11/2023 [facility] EPIC FOR RECORDS PERTAINING TO PATIENTS WHO ARE OR HAVE BEEN ENROLLED IN A CHEMICAL DEPENDENCY/SUBSTANCEABUSE PROGRAM, SOME INFORMATION MAY BE OMITTED. This clinical summary was aggregated from multiple sources. Caution should be exercised in using it in the provision of clinical care. This summary normalizes information from multiple sources, and as a consequence, information in this document may materially change the coding, format and clinical context of patient data. In addition, data may be omitted in some cases. CLINICAL DECISIONS SHOULD BE BASED ON THE PRIMARY CLINICAL RECORDS. [facility] [employer] [facility]. provides no warranty or guarantee of the accuracy or completeness of information in this document.
== END 2024-02-01 13:31 | disposition home or self-care (01) ==
LOC: LAB 13:32
PROVIDERS: PCP Nurse Practitioner; Visit Provider Nurse Practitioner
DX: E55.9 Vitamin D deficiency, unspecified (principal)
CPT/HCPCS: 36415; 82306

== ENCOUNTER 2024-12-02 12:02 | Outpatient (OUT) | payer MEDICARE, MEDICAID, SELFPAY ==
[2024-12-02 12:39] LABS: Hematocrit 46.7 % (42.0-54.0); Hemoglobin 15.5 g/dL (14.0-18.0); Immature Granulocytes Abs Auto 0.03 10^3/uL (0.00-0.03); Immature Granulocytes Pct Auto 0.5 % (0.0-0.5); Lymphocytes Absolute Auto 1.6 10^3/uL (1.2-3.8); Mean Corpuscular HGB Conc 33.2 g/dL (29.9-35.2); Mean Corpuscular Hemoglobin 28.0 pg (25.9-34.0); Mean Corpuscular Volume 84.3 fL (80.0-94.0); Platelet Count 195 10^3/uL (150-450); Red Blood Count 5.54 10^6/uL (4.70-6.10); White Blood Count 6.4 10^3/uL (4.0-11.0)
[2024-12-02 12:51] LABS: Glucose Urine UA NEGATIVE (NEGATIVE)
[2024-12-02 13:12] LABS: Alanine Aminotransferase 17 U/L (16-63); Albumin Globulin Ratio 1.2; Albumin Level 3.8 g/dL (3.4-5.0); Alkaline Phosphatase 76 U/L (46-116); Anion Gap 13.9; Aspartate Amino Transferase 16 U/L (15-37); Blood Urea Nitrogen 16.0 mg/dL (7.0-18.0); Calcium 9.2 mg/dL (8.5-10.1); Carbon Dioxide 28.8 mmol/L (21.0-32.0); Chloride 106 mmol/L (98-107); Estimated GFR (African America >60 (>=60 mL/min/1.73m^2); Estimated GFR (Non-African Ame >60 (>=60 mL/min/1.73m^2); Globulin 3.2 g/dL; Glucose 101 mg/dL (74-106); Potassium 3.7 mmol/L (3.5-5.1); Sodium 145 mmol/L (136-145); Total Protein 7.0 g/dL (6.4-8.2)
== END 2024-12-02 12:03 | disposition home or self-care (01) ==
LOC: LAB 12:05
PROVIDERS: PCP Nurse Practitioner; Visit Provider Nurse Practitioner
DX: J43.9 Emphysema, unspecified (principal); F17.200 Nicotine dependence, unspecified, uncomplicated; E55.9 Vitamin D deficiency, unspecified
CPT/HCPCS: 36415; 80053; 81003; 82306; 85025